=== PATIENT | male | born 1975 | race Two or more races ===

== ENCOUNTER → 2016-07-04 | Outpatient (CLI) | payer BC ==
[2016-07-04 08:53] LABS: Urine Bilirubin Negative (Negative); Urine Blood TRACE /uL (Negative); Urine Color Yellow (Yellow); Urine Glucose Normal (Normal); Urine Ketone Negative (Negative); Urine Mucus FEW (None Seen); Urine Nitrite Negative (Negative); Urine RBC 1 /hpf (0 - 3); Urine Squamous Epithelial Cell FEW /hpf (<5); Urine Urobilinogen Normal (Negative); Urine pH 5.5 (5.0-8.0)
[2016-07-04 08:57] LABS: Basophils # (auto) 0.1 uL; Basophils % (auto) 1.1 % (0.0-2.0); Eosinophils # (auto) 0.1 uL; Eosinophils % (auto) 1.8 % (0.0-7.0); Hematocrit 42.7 % (41.0-53.0); Hemoglobin 14.1 g/dL (13.5-17.5); Lymphocytes # (auto) 2.8 uL; Lymphocytes % (auto) 42.2 % (10.0-50.0); Mean Corpuscular Hemoglobin 29.5 pg (28.0-32.0); Mean Corpuscular Volume 89.4 fL (80.0-100.0); Mean Platelet Volume 8.6 fL (7.4-10.4); Monocytes # (auto) 0.5 uL; Monocytes % (auto) 7.1 % (0.0-12.0); Neutrophils # (auto) 3.2 uL; Neutrophils % (auto) 47.8 % (37.0-80.0); Platelet Count (auto) 298 10^3/uL (140-450); Red Cell Distribution Width 13.6 % (11.6-16.0); White Blood Cell 6.6 10^3/uL (4.4-10.8)
[2016-07-04 09:41] LABS: Albumin 3.9 g/dL (3.4-5.0); BUN/Creatinine Ratio 16.7; Bilirubin, Total 0.4 mg/dL (0.2-1.0); Calcium 8.8 mg/dL (8.5-10.1); Potassium 4.3 mmol/L (3.5-5.1); Total Protein 7.5 g/dL (6.4-8.2)
[2016-07-04 12:49] LABS: Hepatitis B Surface Antibody Positive
== END | disposition home or self-care (01) ==
LOC: LAB 07:26
PROVIDERS: ATTEND Internal Medicine
DX: Z00.00 Encounter for general adult medical examination without abnormal findings (principal); E55.9 Vitamin D deficiency, unspecified; E87.1 Hypo-osmolality and hyponatremia; E29.1 Testicular hypofunction
CPT/HCPCS: 36415; 80053; 80061; 81001; 85025; 86704; 86706; 86708; 86803; 87340

== ENCOUNTER 2016-11-26 19:24 | Emergency (ER) | payer BC ==
[~2016-11-26] VITALS: Ht 175.3 cm; Wt 83.9 kg
[2016-11-26 20:07] VITALS: BP 117/72
[2016-11-26 22:05] LABS: Hepatitis B Surface Antibody Positive
[2016-11-26] MEDS ORDERED: BACITRACIN TOP OINT 1 UD PKG TOP ONE (22:15)
== END 2016-11-26 22:55 | disposition home or self-care (01) ==
LOC: ER 19:35
DX: S60.411A Abrasion of left index finger, initial encounter (principal); W22.8XXA Striking against or struck by other objects, initial encounter; Y93.89 Activity, other specified; Y92.89 Other specified places as the place of occurrence of the external cause; Y99.8 Other external cause status
CPT/HCPCS: 36415; 86703; 86706; 86803; 87340

== ENCOUNTER → 2017-03-17 | Outpatient (CLI) | payer BC ==
[2017-03-20 10:40] LABS: Hepatitis B Surface Antibody Positive
[2017-03-20 10:54] LABS: Hepatitis B Surface Antigen Negative (Negative)
== END | disposition home or self-care (01) ==
LOC: LAB 15:40
PROVIDERS: ATTEND Nurse Practitioner
DX: S91.339 Puncture wound without foreign body, unspecified foot (principal)
CPT/HCPCS: 36415; 86703; 86706; 86803; 87340

== ENCOUNTER 2017-05-22 17:14 | Emergency (ER) | payer BC, OTHER ==
[~2017-05-22] VITALS: Ht 175.3 cm; Wt 88.5 kg
[2017-05-22 17:45] VITALS: BP 112/77
[2017-05-22] MEDS ORDERED: KETOROLAC TROMETH 60MG/2ML VIAL IM ONE ×2 (19:12→19:15)
== END 2017-05-22 19:57 | disposition home or self-care (01) ==
LOC: ER 17:37
DX: M54.9 Dorsalgia, unspecified (principal); R20.0 Anesthesia of skin
CPT/HCPCS: 72100; 96372; 99284; J1885

== ENCOUNTER 2017-08-29 14:19 | Emergency (ER) | payer OTHER ==
[~2017-08-29] VITALS: Ht 175.3 cm; Wt 86.2 kg
[2017-08-29 14:26] VITALS: BP 127/80
== END 2017-08-29 16:17 | disposition home or self-care (01) ==
LOC: ER 14:19
DX: M54.16 Radiculopathy, lumbar region (principal); M51.16 Intervertebral disc disorders with radiculopathy, lumbar region; M51.27 Other intervertebral disc displacement, lumbosacral region
CPT/HCPCS: 72131

== ENCOUNTER → 2017-11-05 | Outpatient (CLI) | payer BC ==
[2017-11-05 14:11] LABS: Basophils # (auto) 0.1 uL; Eosinophils # (auto) 0.2 uL; Eosinophils % (auto) 2.3 % (0.0-7.0); Hematocrit 40.3 % (41.0-53.0); Hemoglobin 13.5 g/dL (13.5-17.5); Lymphocytes # (auto) 2.4 uL; Lymphocytes % (auto) 34.7 % (10.0-50.0); Mean Corpuscular Hemoglobin 29.5 pg (28.0-32.0); Mean Corpuscular Hgb Conc. 33.4 g/dL (32.0-36.0); Mean Corpuscular Volume 88.1 fL (80.0-100.0); Monocytes # (auto) 0.6 uL; Monocytes % (auto) 8.8 % (0.0-12.0); Neutrophils # (auto) 3.7 uL; Neutrophils % (auto) 53.2 % (37.0-80.0); Nucleated Red Blood Cells % 0.1 %; Platelet Count (auto) 268 10^3/uL (140-450); Red Blood Cells 4.57 10^6/uL (4.5-5.90); Red Cell Distribution Width 13.6 % (11.8-14.3); White Blood Cell 6.9 10^3/uL (4.4-10.8)
[2017-11-05 14:22] LABS: BUN/Creatinine Ratio 12.9; Bilirubin, Total 0.3 mg/dL (0.2-1.0); Calcium 8.9 mg/dL (8.5-10.1); Potassium 4.1 mmol/L (3.5-5.1); Total Protein 7.4 g/dL (6.4-8.2)
== END | disposition home or self-care (01) ==
LOC: LAB 13:38
PROVIDERS: ATTEND Internal Medicine
DX: B89 Unspecified parasitic disease (principal)
CPT/HCPCS: 36415; 80053; 85025; 87177

== ENCOUNTER → 2018-02-06 | Outpatient (CLI) | payer BC ==
[2018-02-06 13:24] LABS: BUN/Creatinine Ratio 16.5; Bilirubin, Total 0.5 mg/dL (0.2-1.0); Calcium 8.9 mg/dL (8.5-10.1); Potassium 4.3 mmol/L (3.5-5.1); Total Protein 7.5 g/dL (6.4-8.2)
[2018-02-09 10:00] LABS: Hepatitis B Surface Antibody Positive
[2018-02-09 10:33] LABS: Hepatitis A Total Antibody Positive
[2018-02-09 13:22] LABS: Hepatitis B Core Total AB Negative
[2018-02-09 13:23] LABS: Hepatitis B Surface Antigen Negative (Negative); Hepatitis C Antibody Negative (Negative)
== END | disposition home or self-care (01) ==
LOC: LAB 10:25
PROVIDERS: ATTEND Internal Medicine
DX: K75.2 Nonspecific reactive hepatitis (principal); E78.5 Hyperlipidemia, unspecified; E78.1 Pure hyperglyceridemia
CPT/HCPCS: 36415; 80053; 80061; 86704; 86706; 86708; 86803; 87340

== ENCOUNTER → 2018-04-09 | Outpatient (CLI) | payer BC, OTHER ==
[2018-04-09 11:23] LABS: Basophils # (auto) 0.1 uL; Basophils % (auto) 1.2 % (0.0-2.0); Eosinophils # (auto) 0.1 uL; Eosinophils % (auto) 2.2 % (0.0-7.0); Hematocrit 41.4 % (41.0-53.0); Hemoglobin 13.7 g/dL (13.5-17.5); Lymphocytes # (auto) 2.6 uL; Lymphocytes % (auto) 40.3 % (10.0-50.0); Mean Corpuscular Hemoglobin 29.6 pg (28.0-32.0); Mean Corpuscular Hgb Conc. 33.2 g/dL (32.0-36.0); Mean Corpuscular Volume 89.3 fL (80.0-100.0); Monocytes # (auto) 0.6 uL; Monocytes % (auto) 8.8 % (0.0-12.0); Neutrophils % (auto) 47.5 % (37.0-80.0); Nucleated Red Blood Cells % 0.1 %; Platelet Count (auto) 257 10^3/uL (140-450); Red Blood Cells 4.63 10^6/uL (4.5-5.90); Red Cell Distribution Width 13.5 % (11.8-14.3); White Blood Cell 6.4 10^3/uL (4.4-10.8)
[2018-04-09 13:43] LABS: Albumin 3.9 g/dL (3.4-5.0); Calcium 9.1 mg/dL (8.5-10.1); Potassium 4.2 mmol/L (3.5-5.1)
[2018-04-09 13:49] LABS: BUN/Creatinine Ratio 16.1; Bilirubin, Total 0.4 mg/dL (0.2-1.0); Total Protein 7.3 g/dL (6.4-8.2)
[2018-04-09 13:52] LABS: Hepatitis B Surface Antibody Positive
[2018-04-09 16:02] LABS: Hepatitis B Surface Antigen Negative (Negative)
== END | disposition home or self-care (01) ==
LOC: LAB 10:41
PROVIDERS: ATTEND Nurse Practitioner
DX: S41.132A Puncture wound without foreign body of left upper arm, initial encounter (principal); K75.2 Nonspecific reactive hepatitis; E78.1 Pure hyperglyceridemia; E78.5 Hyperlipidemia, unspecified; B89 Unspecified parasitic disease; X58.XXXA Exposure to other specified factors, initial encounter; Y92.230 Patient room in hospital as the place of occurrence of the external cause; Y04.0XXA Assault by unarmed brawl or fight, initial encounter; Y99.0 Civilian activity done for income or pay
CPT/HCPCS: 36415; 80053; 80061; 85025; 86703; 86706; 86803; 87340

== ENCOUNTER → 2018-08-11 | Outpatient (CLI) | payer BC | END | disposition home or self-care (01) | LOC: LAB 13:07 | PROVIDERS: ATTEND Nurse Practitioner Family | DX: R10.9 Unspecified abdominal pain (principal) | CPT/HCPCS: 82270; 87045; 87177; 87899 ==

== ENCOUNTER 2019-06-25 15:05 | Emergency (ER) | payer BC ==
[~2019-06-25] VITALS: Ht 175.3 cm; Wt 88.5 kg
[2019-06-25] MEDS ORDERED: cefTRIAXone SOD 1,000 MG VL IM ONE (15:45)
[2019-06-25 15:54] VITALS: BP 112/72
== END 2019-06-25 16:02 | disposition home or self-care (01) ==
LOC: EEVIPCON 15:06 → ER 15:06
DX: J20.9 Acute bronchitis, unspecified (principal); J02.9 Acute pharyngitis, unspecified
CPT/HCPCS: 71046; 96372; 99283; J0696

== ENCOUNTER → 2019-12-02 | Outpatient (CLI) | payer BC ==
[2019-12-02 09:01] LABS: Basophils # (auto) 0.1 10 ^3/uL (0-0.2); Basophils % (auto) 1.2 % (0.0-2.0); Eosinophils # (auto) 0.1 10 ^3/uL (0-0.8); Eosinophils % (auto) 2.1 % (0.0-7.0); Hematocrit 42.4 % (41.0-53.0); Hemoglobin 14.1 g/dL (13.5-17.5); Lymphocytes % (auto) 45.1 % (10.0-50.0); Mean Corpuscular Hemoglobin 29.8 pg (28.0-32.0); Mean Corpuscular Hgb Conc. 33.2 g/dL (32.0-36.0); Mean Corpuscular Volume 89.8 fL (80.0-100.0); Monocytes # (auto) 0.6 10 ^3/uL (0-1.3); Monocytes % (auto) 9.5 % (0.0-12.0); Neutrophils # (auto) 2.8 10 ^3/uL (1.6-8.6); Neutrophils % (auto) 42.1 % (37.0-80.0); Nucleated Red Blood Cells % 0.1 %; Platelet Count (auto) 288 10^3/uL (140-450); Red Blood Cells 4.72 10^6/uL (4.5-5.90); Red Cell Distribution Width 13.7 % (11.8-14.3); White Blood Cell 6.6 10^3/uL (4.4-10.8)
[2019-12-02 09:12] LABS: Albumin 3.9 g/dL (3.4-5.0); Calcium 8.8 mg/dL (8.5-10.1); Potassium 3.9 mmol/L (3.5-5.1)
[2019-12-02 09:16] LABS: BUN/Creatinine Ratio 18.9; Bilirubin, Total 0.4 mg/dL (0.2-1.0); Total Protein 7.6 g/dL (6.4-8.2)
== END | disposition home or self-care (01) ==
LOC: LAB 08:31
PROVIDERS: ATTEND Internal Medicine
DX: K92.2 Gastrointestinal hemorrhage, unspecified (principal); R10.12 Left upper quadrant pain; R10.31 Right lower quadrant pain; R19.7 Diarrhea, unspecified; Z68.29 Body mass index [BMI] 29.0-29.9, adult
CPT/HCPCS: 36415; 80053; 80061; 84443; 85025

== ENCOUNTER → 2020-02-11 | Outpatient (CLI) | payer OTHER, BC | END | disposition home or self-care (01) | LOC: LAB 16:28 | PROVIDERS: ATTEND Nurse Practitioner Family | DX: Z20.828 Contact with and (suspected) exposure to other viral communicable diseases (principal) | CPT/HCPCS: C9803; U0003 ==

== ENCOUNTER 2020-10-13 14:38 | Emergency (ER) | payer BC, OTHER ==
[~2020-10-13] VITALS: Ht 175.3 cm; Wt 86.2 kg
[2020-10-13 16:06] VITALS: BP 122/90
[2020-10-13] MEDS ORDERED: KETOROLAC TROMETH 60MG/2ML VIAL IM ONE (16:45)
== END 2020-10-13 16:51 | disposition home or self-care (01) ==
LOC: ER 14:38
DX: M48.061 Spinal stenosis, lumbar region without neurogenic claudication (principal); M54.16 Radiculopathy, lumbar region
CPT/HCPCS: 72131; 96372; 99284; J1885

== ENCOUNTER → 2021-10-30 | Outpatient (CLI) | payer BC ==
[2021-10-30 09:24] LABS: Basophils # (auto) 0 10 ^3/uL (0-0.2); Basophils % (auto) 0.3 % (0.0-2.0); Eosinophils # (auto) 0.2 10 ^3/uL (0-0.8); Hematocrit 40.3 % (41.0-53.0); Hemoglobin 13.6 g/dL (13.5-17.5); Lymphocytes # (auto) 3.4 10 ^3/uL (0.4-5.4); Mean Corpuscular Hemoglobin 30.2 pg (28.0-32.0); Mean Corpuscular Hgb Conc. 33.8 g/dL (32.0-36.0); Mean Corpuscular Volume 89.4 fL (80.0-100.0); Monocytes # (auto) 0.6 10 ^3/uL (0-1.3); Monocytes % (auto) 8.1 % (0.0-12.0); Neutrophils # (auto) 2.7 10 ^3/uL (1.6-8.6); Neutrophils % (auto) 39.6 % (37.0-80.0); Nucleated Red Blood Cells % 0.3 %; Red Blood Cells 4.51 10^6/uL (4.5-5.90); Red Cell Distribution Width 13.5 % (11.8-14.3); White Blood Cell 6.9 10^3/uL (4.4-10.8)
[2021-10-30 09:50] LABS: Albumin 3.7 g/dL (3.4-5.0); BUN/Creatinine Ratio 23.5; Calcium 8.8 mg/dL (8.5-10.1); Potassium 4.3 mmol/L (3.5-5.1)
[2021-10-30 09:54] LABS: Bilirubin, Total 0.3 mg/dL (0.2-1.0); Total Protein 7.2 g/dL (6.4-8.2)
== END | disposition home or self-care (01) ==
LOC: LAB 07:59
PROVIDERS: ATTEND Internal Medicine
DX: E78.5 Hyperlipidemia, unspecified (principal); K75.2 Nonspecific reactive hepatitis; B89 Unspecified parasitic disease; K76.0 Fatty (change of) liver, not elsewhere classified; Z68.27 Body mass index [BMI] 27.0-27.9, adult
CPT/HCPCS: 36415; 80053; 80061; 84443; 85025

== ENCOUNTER → 2021-11-14 | Outpatient (CLI) | payer BC | END | disposition home or self-care (01) | LOC: LAB 07:36 | PROVIDERS: ATTEND Internal Medicine | DX: E78.5 Hyperlipidemia, unspecified (principal); B89 Unspecified parasitic disease; K76.0 Fatty (change of) liver, not elsewhere classified; K75.2 Nonspecific reactive hepatitis; Z68.27 Body mass index [BMI] 27.0-27.9, adult | CPT/HCPCS: 87177 ==

== ENCOUNTER → 2023-09-02 | Outpatient (CLI) | payer BC ==
[2023-09-02 10:55] LABS: Basophils # (auto) 0 10 ^3/uL (0-0.2); Basophils % (auto) 0.3 % (0.0-2.0); Eosinophils # (auto) 0.2 10 ^3/uL (0-0.8); Hemoglobin 13.8 g/dL (13.5-17.5); Lymphocytes # (auto) 2.6 10 ^3/uL (0.4-5.4); Lymphocytes % (auto) 39.5 % (10.0-50.0); Mean Corpuscular Hemoglobin 29.6 pg (28.0-32.0); Mean Corpuscular Hgb Conc. 33.7 g/dL (32.0-36.0); Mean Corpuscular Volume 87.8 fL (80.0-100.0); Monocytes # (auto) 0.6 10 ^3/uL (0-1.3); Monocytes % (auto) 8.6 % (0.0-12.0); Neutrophils # (auto) 3.2 10 ^3/uL (1.6-8.6); Neutrophils % (auto) 48.6 % (37.0-80.0); Nucleated Red Blood Cells % 0.2 %; Red Blood Cells 4.67 10^6/uL (4.5-5.90); Red Cell Distribution Width 13.3 % (11.8-14.3); White Blood Cell 6.5 10^3/uL (4.4-10.8)
[2023-09-02 12:17] LABS: Prostate Specific Antigen 0.15 ng/mL (0.0-4.0)
[2023-09-02 12:18] LABS: Creatinine, Urine 151.66 mg/dL (30.0-125.0)
[2023-09-02 12:19] LABS: Alanine Aminotransferase 30 U/L (7-40); Alkaline Phosphatase 82 U/L (46-116); Anion Gap 6 (5-15); BUN/Creatinine Ratio 18.8 (10.0-20.0); Blood Urea Nitrogen 18 mg/dL (9-23); Calcium 9.8 mg/dL (8.5-10.1); Carbon Dioxide 29 mmol/L (20-30); Chloride 104 mmol/L (98-107); Glucose 103 mg/dL (74-106); Potassium 4.3 mmol/L (3.5-5.1); Sodium 139 mmol/L (136-145); Triglycerides 277 mg/dL (< 150)
[2023-09-02 12:20] LABS: Aspartate Aminotransferase 22 U/L (13-40); LDL Cholesterol 144 mg/dL (< 100)
[2023-09-02 12:21] LABS: Bilirubin, Direct < 0.1 mg/dL (<0.3); Bilirubin, Total 0.3 mg/dL (0.2-1.0); Cholesterol 223 mg/dL (< 200); Folate (Folic Acid) 22.08 ng/mL (>5.38); HDL Cholesterol 39 mg/dL (40-59); Total Protein 7.2 g/dL (5.7-8.2)
[2023-09-02 12:26] LABS: Albumin 4.6 g/dL (3.2-4.8)
[2023-09-15 12:06] LABS: Free Testosterone(Direct) 2.6 pg/mL (7.2-24.0)
== END | disposition home or self-care (01) ==
LOC: LAB 10:22
PROVIDERS: ATTEND Internal Medicine
DX: Z00.00 Encounter for general adult medical examination without abnormal findings (principal); E78.5 Hyperlipidemia, unspecified
CPT/HCPCS: 36415; 80053; 80061; 82043; 82248; 82306; 82570; 82607; 82746; 83036; 84153; 84402; 84403; 84443; 85025

== ENCOUNTER 2024-11-13 09:36 | Emergency (ER) | payer BC, OTHER ==
[~2024-11-13] VITALS: Ht 175.3 cm; Wt 99.0 kg
--- NOTE | 2024-11-13 10:13 | ED.PDOC ---
Back pain HPI HPI Comments A 49 YEAR-OLD MALE, WITH A PMHX OF CHRONIC BACK PAIN, PRESENTS TO THE ED WITH A CHIEF COMPLAINT OF WORSENING LOWER BACK PAIN OF X3 DAYS AGO. PATIENT STATES HE WAS DOING THE DISHES WHEN BACK PAIN BEGAN TO WORSEN. PATIENT STATES THAT HE FEELS PAIN RADIATING FROM HIS UPPER LEFT THIGH TO THE LOWER BACK. PT HAS HX OF CHRONIC LOW BACK PAIN DUE TO DDD OF LOWER BACK. PATIENT HAS NO FURTHER COMPLAINTS AT THIS TIME AND OTHERWISE DENIES ANY FEVER, CHILLS, N/V/D, ABDOMINAL PAIN, OR DYSURIA. PATIENT IS ALERT, ORIENTED X 4, AND HAS STEADY GAIT. PT REQUESTS DILAUDID PAIN MEDICATION AND THE PAIN LEVEL IS 10/10 AT THIS TIME. Chief Complaint: Back Pain Time Seen by MD: 10:03 Primary Care Provider: NONE Reviewed Notes: Nurses Notes, Medications, Allergies Allergies: Coded Allergies: NO KNOWN ALLERGIES (Unverified , 02/18/12) Home Meds Active Scripts Tramadol HCl (Tramadol HCl) 50 Mg Tab, 50 MG PO TID, #24 TAB Prov:LUDY MAHARAJ 11/13/24 Prednisone (Prednisone) 20 Mg Tab, 40 MG PO BID, #20 TAB Prov:LUDY MAHARAJ 11/13/24 Information Source: Patient Mode of Arrival: Ambulatory Timing: Days (X2) Duration: Since onset Location of Back pain: (L) Lower back Radiates to: Posterior: (L) Buttocks, (L) Thigh Radiates to: Lateral: (L) Buttocks, (L) Thigh Severity: Moderate Prehospital treatment: None Onset: Spontaneous History of: Chronic Back Pain Modifying Factors: Movement, Walking Associated signs and symptoms: Other (LEFT SIDED BACK PAIN ) Past Medical History Past Medical History (Other): CHRONIC LOWER BACK PAIN, DDD OF LOW BACK Surgical History: Hernia Repair Family History Family History: No family hx of Heart imani Social History Smoker: Non-Smoker Alcohol: Denies ETOH Use Drugs: Denies Drug Use Lives In: Home Constitutional: denies: chills, diaphoresis, fatigue, fever, malaise, sweats, weakness, others EENTM: denies: blurred vision, double vision, ear bleeding, ear discharge, ear drainage, ear pain, ear ringing, eye pain, eye redness, hearing loss, mouth pain, mouth swelling, nasal discharge, nose bleeding, nose congestion, nose pain, photophobia, tearing, throat pain, throat swelling, voice changes, others Respiratory: denies: cough, hemoptysis, orthopnea, SOB at rest, shortness of breath, SOB with excertion, stridor, wheezing, others Cardiovascular: denies: chest pain, dizzy spells, diaphoresis, Dyspnea on exertion, edema, irregular heart beat, left arm pain, lightheadedness, palpita tions, PND, syncope, others Gastrointestinal: denies: abdomen distended, abdominal pain, blood streaked venus wels, constipated, diarrhea, dysphagia, difficulty swallowing, hematemesis, melena, nausea, poor appetite, poor fluid intake, rectal bleeding, rectal pain, vomiting, others Genitourinary: denies: burning, dysuria, flank pain, frequency, hematuria, incontinence, penile discharge, penile sore, pain, testicle pain, testicle swelling, urgency, others Neurological: denies: dizziness, fainting, headache, left sided numbness, left sided weakness, numbness, paresthesia, pre-existing deficit, right sided numbness, right sided weakness, seizure, speech problems, tingling, tremors, weakness, others Musculoskeletal: reports: back pain, muscle pain, others (LEFT THIGH PAIN ); denies: gout, joint pain, joint swelling, muscle stiffness, neck pain Integumetry: denies: bruises, change in color, change in hair/nails, dryness, laceration, lesions, lumps, rash, wounds, others Allergic/Immunocompromised: denies: Difficulty Healing, Frequent Infections, Hives, Itching, others Hematologic/Lymphatic: denies: anemia, blood clots, easy bleeding, easy bruising, swollen glands, others Endocrine: denies: excessive hunger, excessive sweating, excessive thirst, excessive urination, flushing, intolerance to cold, intolerance to heat, unexplained weight gain, unexplained weight loss, others Psychiatric: denies: anxiety, bipolar disorder, depression, hopeless, panic disorder, schizophrenia, sleepless, suicidal, others All Other Systems: Reviewed and Negative Physical Exam General Appearance: No Apparent Distress, Obese HEENT: Normal ENT Inspection, PERRL/EOMI, Pharynx Normal, TMs Normal Neck: Full Range of Motion, Non-Tender, Normal, Normal Inspection Respiratory: Chest Non-Tender, Lungs Clear, No Accessory Muscle Use, No Respiratory Distress, Normal Breath Sounds Cardiovascular: No Edema, No JVD, No Murmur, No Gallop, Normal Peripheral Pulses, Regular Rate/Rhythm Breast Exam: Deferred Gastrointestinal: No Organomegaly, Non Tender, No Pulsatile Mass, Normal Bowel Sounds, Soft Genitalia: Deferred Pelvic: Deferred Rectal: Deferred Extremities: No calf tenderness, Normal capillary refill, Normal inspection, Normal range of motion, Non-tender, No pedal edema Musculoskeletal : Location: Bilateral Extremity Location: Back Apperance: Tenderness: Moderate (TENDERNESS AND MUSCLE SPASM ON LOW BACK, NO BONY TENDERNESS, SWELLING AND DEFORMITY. ) Neurologic: Alert, outsole cementer II-XII nml as Tested, No Motor Deficits, Normal Affect, Normal Mood, No Sensory Deficits Cerebellar Function: Normal Reflexes: Normal Skin: Dry, Normal Color, Warm Peripheral Pulses: 2+ carotid (R), 2+ carotid (L), 2+ dorsalis pedis (R), 2+ dorsalis pedis (L) Lymphatic: No Adenopathy Was a procedure done? Was a procedure done?: No Back Pain Differential Dx Differential Diagnosis: Fracture, Musculoskeletal Pain, Other (chronic low back pain exacerbation ) X-Ray, Labs, Meds, VS Vital Signs Date Time Temp Pulse Resp B/P (MAP) Pulse Ox O2 Delivery O2 Flow Rate FiO2 11/13/24 13:02 77 12 120/69 11/13/24 13:00 77 12 95 Room Air* 0 21 11/13/24 13:00 98.1 77 12 120/69 (86) 98.1 11/13/24 12:55 98.8 71 16 74/32 (46) 99 98.8 11/13/24 12:35 97 16 99 Room Air 11/13/24 12:35 98.8 97 16 139/91 (107) 99 98.8 11/13/24 12:32 97 16 139/91 11/13/24 11:44 98.2 90 16 141/77 (98) 96 98.2 11/13/24 10:28 97.8 95 16 141/96 (111) 97 97.8 Lab Test 11/13/24 12:48 Range/Units POC Glucose 107 H 70-106 mg/dl Current Medications Medications (Trade) Dose Ordered Sig/Erinn Route Start Time Stop Time Status Last Admin Hydromorphone HCl (Dilaudid Injection) 2 mg ONCE ONCE IM 11/13/24 12:30 11/13/24 12:31 DC 11/13/24 12:32 Ondansetron HCl (Zofran Po) 4 mg ONCE ONCE PO 11/13/24 12:30 11/13/24 12:31 DC 11/13/24 12:33 Sodium Chloride 1,000 ml @ 1,000 mls/hr Q1H ONCE IV 11/13/24 13:00 11/13/24 13:59 DC 11/13/24 12:53 ORDERING PHYSICIAN: LUDY MAHARAJ PROCEDURE(s): LS2CT - LS SPINE WO CONTRAST REASON: LOW BACK PAIN TO LEFT THIGH, HX OF DDD ORDER NUMBER(s): [id number], ACCESSION NUMBER(s): [id number] CLINICAL INFORMATION: Low-back pain radiating to the left thigh. TECHNIQUE: Axial CT images of the lumbar spine were obtained without IV contrast. Coronal and sagittal reformatted images were obtained, reviewed, and stored. One or more of the following dose reduction techniques were used: Automated exposure control. Adjustment of mA and/or kV according to patient size. CTDIvol = 30.3 mGy DLP = 925.68 mGy-cm COMPARISON: LS SPINE WO CONTRAST on DOS: 10/13/20 FINDINGS: There are 6 voq-ynt-trpvtwl lumbar type vertebrae with transitional vertebra at the lumbosacral junction, which will be designated L6 for the purposes of numbering on this exam. Mild grade 1 anterolisthesis of L6 on S1 with chronic bilateral pars defects at L6. Vertebral body heights are maintained. Posterior elements are otherwise intact. No acute fracture. Paraspinal soft tissues are unremarkable. Partially visualized hepatic steatosis. Moderate atherosclerotic calcification of the abdominal aorta without abdominal aortic aneurysm. Small subcentimeter retroperitoneal lymph nodes, likely reactive. Lumbar disc levels: L1-L2: No significant disc/facet abnormality. No significant spinal canal or neural foraminal stenosis. L2-L3: No significant disc/facet abnormality. No significant spinal canal or neural foraminal stenosis. L3-L4: Minimal disc bulge. No significant spinal canal stenosis. Facet hypertrophy with duae-et-axywoghp bilateral neural foraminal stenoses. L4-L5: No significant disc bulge or spinal canal stenosis. Facet hypertrophy with moderate bilateral neural foraminal stenoses. L5-L6: Rmwd-hm-tihqosiv disc space narrowing and diffuse disc bulge mildly indenting the ventral aspect of the thecal sac causing mild spinal canal stenosis and partial effacement of the lateral recesses. Facet hypertrophy with moderate bilateral neural foraminal stenoses. L6-S1: Moderate disc space narrowing. Diffuse disc bulge mildly indenting the ventral aspect of the thecal sac. No significant spinal canal stenosis. Moderate bilateral neural foraminal stenoses, right greater than left due to facet hypertrophy and anterolisthesis. IMPRESSION: 1. Transitional anatomy with 6 qbd-oah-tfipumh lumbar-type vertebrae the last intervertebral disc space is designated L6-S1 for the purposes of numbering on this exam. 2. Mild grade 1 anterolisthesis of L6 on S1. Chronic bilateral pars defects at L6. 3. Degenerative disc disease and facet disease in the lumbar spine with associated spinal canal, subarticular, and neural foraminal stenoses as detailed above. Correlate with clinical findings. MRI could be obtained to further characterize if clinically indicated. 4. Additional findings as detailed above. X-Ray, Labs, Meds, VS Comment EXTERNAL MEDICAL RECORDS: NONE INDEPENDENT HISTORIANS: NONE SOCIAL DETERMINANTS OF HEALTH: NONE LABS ORDERED: NONE REVIEWED AND INTERPRETED RESULTS: NONE IMAGING ORDERED: LS SPINE WO CONTRAST TREATMENTS ORDERED: ZOFRAN AND DILAUDID PATIENT'S CASE AND RESULTS HAVE BEEN DISCUSSED WITH THE ED ATTENDING PHYSICIAN AND THEY AGREE WITH MY PLAN OF CARE. RX: ULTRAM 50MG AND PREDNISONE I HAVE DISCUSSED IMAGING AND LAB RESULTS WITH THE PATIENT AND HAVE INSTRUCTED THE PATIENT TO FOLLOW UP WITH THEIR PCP IN 1-2 DAYS. THE PATIENT FULLY UNDERSTANDS THEIR RESULTS AND ARE AWARE THEY NEED TO FOLLOW UP WITH THEIR PCP FOR FURTHER EVALUATION IF THEIR SYMPTOMS PERSIST. Images Reviewed?: Images reviewed and evaluated by me Time of 1ST Reevaluation: 10:30 Reevaluation 1ST: Unchanged Time of 2ND Reevaluation: 15:21 Patient Education/Counseling: Diagnosis, Treatment, Need For Follow Up Family Education/Counseling: Diagnosis, Treatment, Need For Follow Up Medical Screening: No EMC Exist At This Time SEPSIS Sepsis Screen Physician Orders Ls Spine Wo Contrast (11/13/24 10:04) Vital Signs Date Time Temp Pulse Resp B/P (MAP) Pulse Ox O2 Delivery O2 Flow Rate FiO2 11/13/24 13:02 77 12 120/69 11/13/24 13:00 77 12 95 Room Air* 0 21 11/13/24 13:00 98.1 77 12 120/69 (86) 98.1 11/13/24 12:55 98.8 71 16 74/32 (46) 99 98.8 11/13/24 12:35 97 16 99 Room Air 11/13/24 12:35 98.8 97 16 139/91 (107) 99 98.8 11/13/24 12:32 97 16 139/91 11/13/24 11:44 98.2 90 16 141/77 (98) 96 98.2 11/13/24 10:28 97.8 95 16 141/96 (111) 97 97.8 Medications Medications Dose Ordered Sig/Erinn Route Start Time Stop Time Status Last Admin Dose Admin Hydromorphone HCl 2 mg ONCE ONCE IM 11/13/24 12:30 11/13/24 12:31 DC 11/13/24 12:32 Ondansetron HCl 4 mg ONCE ONCE PO 11/13/24 12:30 11/13/24 12:31 DC 11/13/24 12:33 Sodium Chloride 1,000 ml @ 1,000 mls/hr Q1H ONCE IV 11/13/24 13:00 11/13/24 13:59 DC 11/13/24 12:53 Departure 1 Departure Time of Disposition: 15:22 Impression: Primary Impression: DDD (degenerative disc disease), lumbosacral Qualified Codes: M51.372 - Other intervertebral disc degeneration, lumbosacral region with discogenic back pain and lower extremity pain Additional Impressions: Lumbar radiculopathy Acute exacerbation of chronic low back pain Disposition: 01 HOME / SELF CARE / HOMELESS Condition: Stable Additional Instructions: FOLLOW-UP WITH PCP IN 1 TO 2 DAYS. TAKE MEDICATIONS PRESCRIBED. RETURN TO ED FOR ANY NEW OR WORSENING SYMPTOMS. e-Prescriptions Tramadol HCl (Tramadol HCl) 50 Mg Tab 50 MG PO TID, #24 TAB Prov: LUDY MAHARAJ 11/13/24 Prednisone (Prednisone) 20 Mg Tab 40 MG PO BID, #20 TAB Prov: LUDY MAHARAJ 11/13/24 Discharged With: Self, Relative Critical Care Note Critical Care Time?: No Stability Stability form required: No Heart Score Heart Score: Heart Score Response (Comments) Value History N/A 0 EKG N/A 0 Age N/A 0 Risk Factors N/A 0 Troponin N/A 0 Total 0 I personally scribed for LDUY MAHARAJ ([email or web address]) on 11/13/24 at 10:13. Electronically submitted by Ольга Basurto ([employer]). I personally scribed for LUDY MAHARAJ ([email or web address]) on 11/13/24 at 11:18. Electronically submitted by Ольга Basurto ([employer]). I personally scribed for LUDY MAHARJA ([email or web address]) on 11/13/24 at 12:44. Electronically submitted by Ольга Basurto ([employer]). LUDY MAHARAJ Nov 13, 2024 10:13
--- NOTE | 2024-11-13 11:05 | DVH ---
CLINICAL INFORMATION: Low-back pain radiating to the left thigh. TECHNIQUE: Axial CT images of the lumbar spine were obtained without IV contrast. Coronal and sagitt al reformatted images were obtained, reviewed, and stored. One or more of the following dose reducti on techniques were used: Automated exposure control. Adjustment of mA and/or kV according to patient size. CTDIvol = 30.3 mGy DLP = 925.68 mGy-cm COMPARISON: LS SPINE WO CONTRAST on DOS: 10/13/20 FINDINGS: There are 6 uvg-wbr-bjxgfuz lumbar type vertebrae with transitional vertebra at the lumbosacral junct ion, which will be designated L6 for the purposes of numbering on this exam. Mild grade 1 anterolisth esis of L6 on S1 with chronic bilateral pars defects at L6. Vertebral body heights are maintained. Po sterior elements are otherwise intact. No acute fracture. Paraspinal soft tissues are unremarkable. Partially visualized hepatic steatosis. Moderate atherosclerotic calcification of the abdominal aorta without abdominal aortic aneurysm. Small subcentimeter retroperitoneal lymph nodes, likely reactive. Lumbar disc levels: L1-L2: No significant disc/facet abnormality. No significant spinal canal or neural foraminal stenosi s. L2-L3: No significant disc/facet abnormality. No significant spinal canal or neural foraminal stenosi s. L3-L4: Minimal disc bulge. No significant spinal canal stenosis. Facet hypertrophy with kzzb-am-uyoat ate bilateral neural foraminal stenoses. L4-L5: No significant disc bulge or spinal canal stenosis. Facet hypertrophy with moderate bilateral neural foraminal stenoses. L5-L6: Okgq-vd-earcznnu disc space narrowing and diffuse disc bulge mildly indenting the ventral aspe ct of the thecal sac causing mild spinal canal stenosis and partial effacement of the lateral recesse s. Facet hypertrophy with moderate bilateral neural foraminal stenoses. L6-S1: Moderate disc space narrowing. Diffuse disc bulge mildly indenting the ventral aspect of the t hecal sac. No significant spinal canal stenosis. Moderate bilateral neural foraminal stenoses, right greater than left due to facet hypertrophy and anterolisthesis. IMPRESSION: 1. Transitional anatomy with 6 dfw-tvb-oveaaul lumbar-type vertebrae the last intervertebral disc spa ce is designated L6-S1 for the purposes of numbering on this exam. 2. Mild grade 1 anterolisthesis of L6 on S1. Chronic bilateral pars defects at L6. 3. Degenerative disc disease and facet disease in the lumbar spine with associated spinal canal, suba rticular, and neural foraminal stenoses as detailed above. Correlate with clinical findings. MRI coul d be obtained to further characterize if clinically indicated. 4. Additional findings as detailed above.
[2024-11-13] MEDS: HYDROmorphone HCL 2 MG/ML VL/or syr IM ONE (12:32)
[2024-11-13] MEDS: ONDANSETRON ODT 4 MG TAB PO ONE (12:33)
[2024-11-13] MEDS: SODIUM CHLORIDE 0.9% 1,000 ML IV ONE (12:53)
[2024-11-13 13:00] VITALS: PULSE 77; RESP 12; O2SAT 95
[2024-11-13] MEDS ORDERED: PRED20TA2 PO (15:19)
[2024-11-13] MEDS ORDERED: TRAM-626 PO (15:19)
[2024-11-13 15:27] VITALS: BP 124/80; PULSE 70; RESP 12; TEMP 98.1; O2SAT 97
== END 2024-11-13 15:46 | disposition home or self-care (01) ==
LOC: ER 09:36 → EEVIPCON 09:36 → ER 15:45
DX: M51.372 Other intervertebral disc degeneration, lumbosacral region with discogenic back pain and lower extremity pain (principal); M51.16 Intervertebral disc disorders with radiculopathy, lumbar region; M54.50 Low back pain, unspecified; G89.29 Other chronic pain; Z98.890 Other specified postprocedural states; Z79.899 Other long term (current) drug therapy
CPT/HCPCS: 72131; 82947; 96360; 96372; 99285; J1171; J7030; Q0162; 82962

== ENCOUNTER 2025-02-13 18:40 | Emergency (ER) | payer BC ==
[~2025-02-13] VITALS: Ht 175.3 cm; Wt 96.5 kg
[~2025-02-13 18:40] MED LIST: PRED20TA2 PO; TRAM-626 PO
--- NOTE | 2025-02-13 21:05 | DVH ---
CLINICAL INDICATION: lumbar back pain TECHNIQUE: 3 radiographic views of the lumbar spine were obtained. Comparison: LUMBAR SPINE LTD on DOS: 10/09/[address] lumbar spine 11/13/2024 FINDINGS/IMPRESSION: Xhl-ttl-epqfsld lumbar-type vertebrae with with lumbosacral transitional vertebrae. For the purpose o f the study the 1st ppa-yyp-dwaqxme lumbar-type vertebra we will Be considered L1. Unchanged slight chronic deformity of the superior posterior endplate of S2. Otherwise, no evidence of acute traumatic fractures or spondylolisthesis. Chronic bilateral S1 pars defect.
[2025-02-13] MEDS ORDERED: CYCL-837 PO (21:29)
[2025-02-13] MEDS ORDERED: ACET500T58 PO (21:29)
--- NOTE | 2025-02-13 21:29 | ED.PDOC ---
Back pain HPI HPI Comments 49 year old male presents to ER with complaints of back pain x 1 day. Patient with PMH of chronic lumbar back pain reports that he started experiencing worsening left lower lumbar back pain at 5 p.m. today while walking up a hill. Denies any trauma/falls or use of medications for current symptoms. Patient pres ents to ER ambulatory, with steady gait, in no distress. Denies fever, body aches, chills, night sweats, extremity weakness, numbness/tingling, chest pain, abdominal pain, changes in urination/bm or any further symptoms/complaints Chief Complaint: Back Pain Time Seen by MD: 19:15 Primary Care Provider: MERNA Urban Notes: Nurses Notes, Medications, Allergies Allergies: Coded Allergies: NO KNOWN ALLERGIES (Unverified , 02/18/12) Home Meds Active Scripts Acetaminophen (Acetaminophen) 500 Mg Tab, 500 MG PO Q4HPRN, #30 TAB 0 Refills Prov:GARRETT CHOW 02/13/25 Cyclobenzaprine Hcl (Cyclobenzaprine Hcl) 5 Mg Tab, 1 TAB PO QHSP, #14 TAB 0 Refills Prov:GARRETT CHOW 02/13/25 Tramadol HCl (Tramadol HCl) 50 Mg Tab, 50 MG PO TID, #24 TAB Prov:LUDY MAHARAJ 11/13/24 Prednisone (Prednisone) 20 Mg Tab, 40 MG PO BID, #20 TAB Prov:LUDY MAHARAJ 11/13/24 Information Source: Patient Mode of Arrival: Ambulatory Past Medical History Past Medical History (Other): Chronic lumbar back pain Surgical History: Hernia Repair Family History Family History: No family hx of Heart imani Social History Smoker: Non-Smoker Alcohol: Denies ETOH Use Drugs: Denies Drug Use Lives In: Home Constitutional: denies: chills, diaphoresis, fatigue, fever, malaise, sweats, weakness, others EENTM: denies: blurred vision, double vision, ear bleeding, ear discharge, ear drainage, ear pain, ear ringing, eye pain, eye redness, hearing loss, mouth p ain, mouth swelling, nasal discharge, nose bleeding, nose congestion, nose pain, photophobia, tearing, throat pain, throat swelling, voice changes, others Respiratory: denies: cough, hemoptysis, orthopnea, SOB at rest, shortness of br eath, SOB with excertion, stridor, wheezing, others Cardiovascular: denies: chest pain, dizzy spells, diaphoresis, Dyspnea on exertion, edema, irregular heart beat, left arm pain, lightheadedness, palpitations, PND, syncope, others Gastrointestinal: denies: abdomen distended, abdominal pain, blood streaked bowels, constipated, diarrhea, dysphagia, difficulty swallowing, hematemesis, melena, nausea, poor appetite, poor fluid intake, rectal bleeding, rectal pain, vomiting, others Genitourinary: denies: burning, dysuria, flank pain, frequency, hematuria, incontinence, penile discharge, penile sore, pain, testicle pain, testicle swelling, urgency, others Neurological: denies: dizziness, fainting, headache, left sided numbness, left sided weakness, numbness, paresthesia, pre-existing deficit, right sided numbness, right sided weakness, seizure, speech problems, tingling, tremors, weakness, others Musculoskeletal: reports: others (As stated in HPI) Integumetry: denies: bruises, change in color, change in hair/nails, dryness, laceration, lesions, lumps, rash, wounds, others Allergic/Immunocompromised: denies: Difficulty Healing, Frequent Infections, Hives, Itching, others Hematologic/Lymphatic: denies: anemia, blood clots, easy bleeding, easy bruising, swollen glands, others Endocrine: denies: excessive hunger, excessive sweating, excessive thirst, excessive urination, flushing, intolerance to cold, intolerance to heat, unexplained weight gain, unexplained weight loss, others Psychiatric: denies: anxiety, bipolar disorder, depression, hopeless, panic disorder, schizophrenia, sleepless, suicidal, others Physical Exam General Appearance: No Apparent Distress, Obese HEENT: PERRL/EOMI Neck: Full Range of Motion, Non-Tender, Normal Respiratory: Chest Non-Tender, Lungs Clear, No Accessory Muscle Use, No Respiratory Distress, Normal Breath Sounds Cardiovascular: No Murmur, No Gallop, Regular Rate/Rhythm Breast Exam: Deferred Gastrointestinal: Non Tender, No Pulsatile Mass, Soft Genitalia: Deferred Pelvic: Deferred Rectal: Deferred Extremities: Normal capillary refill, Normal range of motion Musculoskeletal : Extremity Location: Back (TTP to left lower lumbar paraspinals noted. No skin changes noted. Steady gait appreciated) Neurologic: Alert, No Motor Deficits, Normal Affect, Normal Mood, No Sensory Deficits Cerebellar Function: Normal Reflexes: Normal Skin: Dry, Normal Color, Warm Peripheral Pulses: 2+ Radial (R), 2+ Radial (L), 2+ Brachial (R), 2+ Brachial (L) Lymphatic: No Adenopathy Was a procedure done? Was a procedure done?: No Sedation Sedation?: No Back Pain Differential Dx Differential Diagnosis: AAA, Fracture, Urinary Tract Infection, Other (Neurovascular injury) X-Ray, Labs, Meds, VS Vital Signs Date Time Temp Pulse Resp B/P (MAP) Pulse Ox O2 Delivery O2 Flow Rate FiO2 02/13/25 18:42 99 16 130/76 95 PATIENT: MARIZA PULIDOT: [id number]: [id number] : 1975 LOC: ER ROOM / BED: / AGE / SEX: 49 / M ADM STATUS: REG ER SERVICE 15 ORDERING PHYSICIAN: GARRETT CHOW PROCEDURE(s): LUMB2 - LUMBAR SPINE 3 VIEW REASON: lumbar back pain ORDER NUMBER(s): [id number], ACCESSION NUMBER(s): [id number] CLINICAL INDICATION: lumbar back pain TECHNIQUE: 3 radiographic views of the lumbar spine were obtained. Comparison: LUMBAR SPINE LTD on DOS: 10/09/[address] lumbar spine 11/13/2024 FINDINGS/IMPRESSION: Nto-hvo-kprbnpj lumbar-type vertebrae with with lumbosacral transitional vertebrae. For the purpose of the study the 1st mwm-ngv-[place] lumbar-type vertebra we will Be considered L1. Unchanged slight chronic deformity of the superior posterior endplate of S2. Otherwise, no evidence of acute traumatic fractures or spondylolisthesis. Chronic bilateral S1 pars defect. ATED BY: VIANCA CALVO DO DICTATED DATE/TIME: 02/13/252101 SIGNED BY: VIANCA CALVO DO SIGNED DATE/TIME: 02/13/252101 CC: Lumbar spine x-ray reviewed Toradol 60 mg IM ordered Patient neurovascularly intact and reported improvement in symptoms prior to discharge Advised on rest/no strenuous activity Advised to follow up with PCP in 1-2 days Patient verbalized understanding and agreeable with current plan of care Advised to return to ER immediately if symptoms worsen Images Reviewed?: Images reviewed and evaluated by me Time of 1ST Reevaluation: 21:02 Reevaluation 1ST: N/A Patient Education/Counseling: Diagnosis, Treatment, Prognosis, Need For Follow Up Family Education/Counseling: No Family Present SEPSIS Sepsis Screen Date sepsis recognized/suspect: Feb 13, 2025 Time Sepsis recognized/suspect: 1841 Recent Procedure: No On Antibiotic Therapy: No Respiratory Rate >20: No Heart Rate >90: Yes Temp<36 C (96.8 F) or >38.3 C: No SBP <90 or MAP <65 mmHG: No New Acute Mental Status Change: No Is the patient on CPAP, BIPAP,: No Physician Orders Lumbar Spine 3 View (02/13/25 19:16) Vital Signs Date Time Temp Pulse Resp B/P (MAP) Pulse Ox O2 Delivery O2 Flow Rate FiO2 02/13/25 18:42 99 16 130/76 95 Departure 1 Departure Time of Disposition: 21:22 Impression: Primary Impression: Lumbar strain Qualified Codes: S39.012A - Strain of muscle, fascia and tendon of lower back, initial encounter Disposition: HOME / SELF CARE / HOMELESS Condition: Stable e-Prescriptions Acetaminophen (Acetaminophen) 500 Mg Tab 500 MG PO Q4HPRN, #30 TAB 0 Refills Prov: GARRETT CHOW 02/13/25 Cyclobenzaprine Hcl (Cyclobenzaprine Hcl) 5 Mg Tab 1 TAB PO QHSP, #14 TAB 0 Refills Prov: GARRETT CHOW 02/13/25 Discharged With: Self Critical Care Note Critical Care Time?: No Stability Stability form required: No Heart Score Heart Score: Heart Score Response (Comments) Value History N/A 0 EKG N/A 0 Age N/A 0 Risk Factors N/A 0 Troponin N/A 0 Total 0 GARRETT CHOW Feb 13, 2025 21:29
[2025-02-13 21:31] VITALS: BP 129/86; PULSE 78; RESP 18; TEMP 98.8; O2SAT 95
[2025-02-13] MEDS: KETOROLAC TROMETH 60MG/2ML VIAL IM ONE (21:31)
== END 2025-02-13 21:48 | disposition home or self-care (01) ==
LOC: EEVIPCON 18:40 → ER 18:40
DX: S39.012A Strain of muscle, fascia and tendon of lower back, initial encounter (principal); G89.29 Other chronic pain; Z98.890 Other specified postprocedural states; Z79.52 Long term (current) use of systemic steroids; Z79.899 Other long term (current) drug therapy; X58.XXXA Exposure to other specified factors, initial encounter; Y93.01 Activity, walking, marching and hiking; Y92.828 Other wilderness area as the place of occurrence of the external cause; Y99.8 Other external cause status
CPT/HCPCS: 72100; 96372; 99283; J1885

== ENCOUNTER 2025-04-27 13:04 | Emergency (ER) | payer BC ==
[~2025-04-27] VITALS: Ht 175.3 cm; Wt 94.5 kg
[~2025-04-27 13:04] MED LIST changes: +ACET500T58 PO; +CYCL-837 PO
[2025-04-27 13:05] VITALS: BP 153/85; PULSE 105; RESP 15; TEMP 98; O2SAT 96
[2025-04-27] MEDS ORDERED: AUG875T PO (14:05)
--- NOTE | 2025-04-27 14:08 | ED.PDOC ---
History of Present Illness(SKN HPI Comments A 50 YEAR OLD MALE PRESENTS TO THE ED WITH COMPLAINT OF DOG BITE. PATIENT REPORTS THAT WHILE PETTING HIS FATHER'S DOG AT HOME, THE DOG LUNGED OUT AND BIT HIM ON HIS LEFT THUMB. PATIENT RELAYS THAT THE DOG HAS ALL OF HIS VACCINES. PATIENT STATES HE IS UNSURE IF HIS TETANUS VACCINE IS UP TO DATE. PATIENT DENIES FEVER, CHILLS, SHORTNESS OF BREATH, CHEST PAIN, ABDOMINAL PAIN, NAUSEA, VOMITING, HEADACHE, OR OTHER COMPLAINTS. NO OTHER SYMPTOMS OR MODIFYING FACTORS AT THIS TIME. PATIENT IS ALERT, ORIENTED X 4, AND HAS STEADY GAIT. Chief Complaint: Abrasion Time Seen by MD: 14:04 Primary Care Provider: MERNA History of Present Illness: Nurses Notes, Medications, Allergies Allergies: Coded Allergies: NO KNOWN ALLERGIES (Unverified , 02/18/12) Home Meds Active Scripts Amoxicillin & Pot Clavulanate (AUGMENTIN TABLET) 875 Mg Tb, 875 MG PO BID for 7 Days, #14 TAB Prov:LUDY MAHARAJ 04/27/25 Acetaminophen (Acetaminophen) 500 Mg Tab, 500 MG PO Q4HPRN, #30 TAB 0 Refills Prov:GARRETT CHOW 02/13/25 Cyclobenzaprine Hcl (Cyclobenzaprine Hcl) 5 Mg Tab, 1 TAB PO QHSP, #14 TAB 0 Refills Prov:GARRETT CHOW 02/13/25 Tramadol HCl (Tramadol HCl) 50 Mg Tab, 50 MG PO TID, #24 TAB Prov:LUDY MAHARAJ 11/13/24 Prednisone (Prednisone) 20 Mg Tab, 40 MG PO BID, #20 TAB Prov:LUDY MAHARAJ 11/13/24 Information Source: Patient Mode of Arrival: Ambulatory Severity: Mild Timing: Hours Duration: Since onset Prehospital treatment: None Location: Other (LEFT THUMB) Mechanism: Dog Occurence: Indoors Object: None Condition of Object: None Retained Foreign Body: No Wound Type: Abrasion, Puncture Immunization Status of Animal: Current Tetanus: Unknown History of: None Associated Signs and Symptoms: Pain Past Medical History Past Medical History (Other): DDD OF LOWER BACK Surgical History: Hernia Repair Family History Family History: No family hx of Heart imani Social History Smoker: Non-Smoker Alcohol: Denies ETOH Use Drugs: Denies Drug Use Lives In: Home Constitutional: denies: chills, diaphoresis, fatigue, fever, malaise, sweats, weakness, others EENTM: denies: blurred vision, double vision, ear bleeding, ear discharge, ear drainage, ear pain, ear ringing, eye pain, eye redness, hearing loss, mouth pain, mouth swelling, nasal discharge, nose bleeding, nose congestion, nose pain, photophobia, tearing, throat pain, throat swelling, voice changes, others Respiratory: denies: cough, hemoptysis, orthopnea, SOB at rest, shortness of breath, SOB with excertion, stridor, wheezing, others Cardiovascular: denies: chest pain, dizzy spells, diaphoresis, Dyspnea on exertion, edema, irregular heart beat, left arm pain, lightheadedness, palpitations, PND, syncope, others Gastrointestinal: denies: abdomen distended, abdominal pain, blood streaked bowels, constipated, diarrhea, dysphagia, difficulty swallowing, hematemesis, melena, nausea, poor appetite, poor fluid intake, rectal bleeding, rectal pain, vomiting, others Genitourinary: denies: burning, dysuria, flank pain, frequency, hematuria, incontinence, penile discharge, penile sore, pain, testicle pain, testicle swelling, urgency, others Neurological: denies: dizziness, fainting, headache, left sided numbness, left sided weakness, numbness, paresthesia, pre-existing deficit, right sided numbness, right sided weakness, seizure, speech problems, tingling, tremors, weakness, others Musculoskeletal: denies: back pain, gout, joint pain, joint swelling, muscle pain, muscle stiffness, neck pain, others Integumetry: reports: lesions, wounds (PUNCTURE WOUND TO LEFT THUMB); denies: bruises, change in color, change in hair/nails, dryness, laceration, lumps, ra sh, others Allergic/Immunocompromised: denies: Difficulty Healing, Frequent Infections, Hives, Itching, others Hematologic/Lymphatic: denies: anemia, blood clots, easy bleeding, easy bruising, swollen glands, others Endocrine: denies: excessive hunger, excessive sweating, excessive thirst, excessive urination, flushing, intolerance to cold, intolerance to heat, unexplained weight gain, unexplained weight loss, others Psychiatric: denies: anxiety, bipolar disorder, depression, hopeless, panic disorder, schizophrenia, sleepless, suicidal, others All Other Systems: Reviewed and Negative Physical Exam General Appearance: No Apparent Distress, Normal HEENT: Normal ENT Inspection, PERRL/EOMI, Pharynx Normal, TMs Normal Neck: Full Range of Motion, Non-Tender, Normal, Normal Inspection Respiratory: Chest Non-Tender, Lungs Clear, No Accessory Muscle Use, No Respiratory Distress, Normal Breath Sounds Cardiovascular: No Edema, No JVD, No Murmur, No Gallop, Normal Peripheral Pulses, Regular Rate/Rhythm Breast Exam: Deferred Gastrointestinal: No Organomegaly, Non Tender, No Pulsatile Mass, Normal Bowel Sounds, Soft Genitalia: Deferred Pelvic: Deferred Rectal: Deferred Extremities: No calf tenderness, Normal capillary refill, Normal inspection, Normal range of motion, Non-tender, No pedal edema Musculoskeletal : Apperance: Normal Neurologic: Alert, core fitter II-XII nml as Tested, No Motor Deficits, Normal Affect, Normal Mood, No Sensory Deficits Cerebellar Function: Normal Reflexes: Normal Skin: Dry, Normal Color, Warm, Wounds (ABRASION WOUND ON LEFT THUMB, NO BONY TENDERNESS, SWELLING AND BLEEDING, NORMAL ROM. ) Peripheral Pulses: 2+ carotid (R), 2+ carotid (L) Lymphatic: No Adenopathy Was a procedure done? Was a procedure done?: No Differential Diagnosis (INTG) Differential Diagnosis: Abrasion, Puncture Wound Differential Diagnosis: Impetigo, Intertrigo X-Ray, Labs, Meds, VS Vital Signs Date Time Temp Pulse Resp B/P (MAP) Pulse Ox O2 Delivery O2 Flow Rate FiO2 04/27/25 13:05 98.0 105 15 153/85 96 98.0 Current Medications Medications (Trade) Dose Ordered Sig/Erinn Route Start Time Stop Time Status Last Admin Diphtheria/ Tetanus/Acell Pertussis (Boostrix T-Dap) 0.5 ml ONCE ONCE IM 04/27/25 14:15 04/27/25 14:16 DC 04/27/25 14:14 X-Ray, Labs, Meds, VS Comment EXTERNAL MEDICAL RECORDS REVIEWED: [NONE] INDEPENDENT HISTORIANS: [NONE] SOCIAL DETERMINANTS OF HEALTH: [NONE] LABS ORDERED: NONE REVIEWED AND INTERPRETED RESULTS: NONE IMAGING ORDERED: NONE TREATMENTS ORDERED: TETANUS VACCINE PROCEDURES PERFORMED: NONE CRITICAL CARE TIME: NONE I HAVE DISCUSSED THE PATIENT WITH THE ATTENDING PHYSICIAN DR. GODOY AND HE AGREES WITH THE PATIENT'S PLAN OF CARE AND DISPOSITION. BASED ON HISTORY OF PRESENT ILLNESS, AND PHYSICAL EXAM, PATIENT WILL BE DISCHARGED HOME. DISCUSSED PLAN FOR DISCHARGE HOME WITH RX [AUGMENTIN]. MEDICATION WARNINGS GIVEN. SHARED DECISION MAKING: DISCUSSED WITH PATIENT THAT THEIR WORKUP WAS NORMAL. PATIENT INSTRUCTED TO FOLLOW UP WITH PRIMARY CARE PROVIDER IN 1-2 DAYS FOR RE- EVALUATION OF SYMPTOMS. PATIENT VERBALIZES UNDERSTANDING TO RETURN TO ED FOR NEW OR WORSENING SYMPTOMS OR IF FOLLOW UP WITH PCP CANNOT BE OBTAINED. PATIENT FEELS COMFORTABLE GOING HOME AT THIS TIME. ALL QUESTIONS ADDRESSED AT TIME OF DISCHARGE. Time of 1ST Reevaluation: 14:30 Reevaluation 1ST: Improved Patient Education/Counseling: Diagnosis, Treatment, Need For Follow Up Family Education/Counseling: Diagnosis, Treatment, No Family Present Medical Screening: No EMC Exist At This Time SEPSIS Sepsis Screen Date sepsis recognized/suspect: Apr 27, 2025 Time Sepsis recognized/suspect: 1307 Recent Procedure: No On Antibiotic Therapy: No Respiratory Rate >20: No Heart Rate >90: No Temp<36 C (96.8 F) or >38.3 C: No SBP <90 or MAP <65 mmHG: No New Acute Mental Status Change: No Is the patient on CPAP, BIPAP,: No Vital Signs Date Time Temp Pulse Resp B/P (MAP) Pulse Ox O2 Delivery O2 Flow Rate FiO2 04/27/25 13:05 98.0 105 15 153/85 96 98.0 Medications Medications Dose Ordered Sig/Erinn Route Start Time Stop Time Status Last Admin Dose Admin Diphtheria/ Tetanus/Acell Pertussis 0.5 ml ONCE ONCE IM 04/27/25 14:15 04/27/25 14:16 DC 04/27/25 14:14 Departure 1 Departure Time of Disposition: 14:20 Impression: Primary Impression: Abrasion Additional Impression: Dog bite Qualified Codes: W54.0XXA - Bitten by dog, initial encounter Disposition: HOME / SELF CARE / HOMELESS Condition: Stable Additional Instructions: FOLLOW-UP WITH PCP IN 1 TO 2 DAYS. TAKE MEDICATIONS PRESCRIBED. RETURN TO ED FOR ANY NEW OR WORSENING SYMPTOMS. e-Prescriptions Amoxicillin & Pot Clavulanate (AUGMENTIN TABLET) 875 Mg Tb 875 MG PO BID for 7 Days, #14 TAB Prov: LUDY MAHARAJ 04/27/25 Discharged With: Self Critical Care Note Critical Care Time?: No Stability Stability form required: No Heart Score Heart Score: Heart Score Response (Comments) Value History N/A 0 EKG N/A 0 Age N/A 0 Risk Factors N/A 0 Troponin N/A 0 Total 0 I personally scribed for LUDY MAHARAJ ([email or web address]) on 04/27/25 at 14:07. Electronically submitted by Sumeet Umana ([email or web address]). LUDY MAHARAJ Apr 27, 2025 14:07
[2025-04-27] MEDS: TETANUS-DIPTH-ACEL PERTUSSIS 0.5ML SYR Tdap IM ONE (14:14)
== END 2025-04-27 14:24 | disposition home or self-care (01) ==
LOC: ER 13:04 → EEVIPCON 13:04 → ER 14:24
DX: T14.8XXA Other injury of unspecified body region, initial encounter (principal); Z98.890 Other specified postprocedural states; W54.0XXA Bitten by dog, initial encounter; Y93.89 Activity, other specified; Y92.89 Other specified places as the place of occurrence of the external cause; Y99.8 Other external cause status
CPT/HCPCS: 90471; 90715